=== PATIENT | male | born 1995 | race African-American/Black ===

== ENCOUNTER → 2020-07-18 | Outpatient (REF) | payer MEDICAID, SELFPAY ==
[~2020-07-18] MED LIST: ACET-897 PO; ALLE24TA7 PO; AMOX500C PO; BENZ200C70 PO; LEVO25TA5 PO; LEVO750T13 PO; PRED10TA2 PO; PRED20TA PO; PROAAER10 INH; TESS100C PO
[2020-07-18 12:35] LABS: BASO % 0.8 % (0.0-1.0); EOS # 0.3 10^3/uL (0.0-0.5); EOS % 7.6 % (0.0-3.0); HEMATOCRIT 49.9 % (42.0-52.0); HEMOGLOBIN 16.1 g/dl (13.5-17.5); LYMPH # 1.7 10^3/uL (1.5-5.0); LYMPH % 43.7 % (24.0-44.0); MEAN CORPUSCULAR HEMOGLOBIN 27.7 pg (27.0-33.0); MEAN CORPUSCULAR HGB CONC 32.3 g/dl (32.0-36.5); MEAN CORPUSCULAR VOLUME 85.7 fl (80.0-96.0); MONO # 0.4 10^3/uL (0.0-0.8); MONO % 11.5 % (2.0-8.0); NEUTROPHILS # 1.4 10^3/uL (1.5-8.5); NEUTROPHILS % 36.1 % (36.0-66.0); PLATELET COUNT, AUTOMATED 152 10^3/uL (150-450); RED BLOOD COUNT 5.82 10^6/uL (4.30-6.10); WHITE BLOOD COUNT 3.8 10^3/uL (4.0-10.0)
[2020-07-18 13:00] LABS: ALBUMIN 3.9 GM/DL (3.2-5.2); ALT/SGPT 190 U/L (12-78); BILIRUBIN,TOTAL 0.6 MG/DL (0.2-1.0); BLOOD UREA NITROGEN 8 MG/DL (7-18); CALCIUM LEVEL 9.6 MG/DL (8.5-10.1); CARBON DIOXIDE LEVEL 32 MEQ/L (21-32); CHLORIDE LEVEL 105 MEQ/L (98-107); CHOLESTEROL LEVEL 244 MG/DL (<200); CHOLESTEROL RISK RATIO 4.135 (<5); CREATININE FOR GFR 0.92 MG/DL (0.70-1.30); GLOMERULAR FILTRATION RATE > 60.0 (>60); GLUCOSE, FASTING 93 MG/DL (70-100); HDL CHOLESTEROL 59 MG/DL (>40); LDL CHOLESTEROL 155 MG/DL (<100); NON-HDL-C 185 MG/DL; POTASSIUM SERUM 4.7 MEQ/L (3.5-5.1); SODIUM LEVEL 141 MEQ/L (136-145); TOTAL PROTEIN 7.3 GM/DL (6.4-8.2); TRIGLYCERIDES LEVEL 148 MG/DL (<150)
[2020-07-18 13:41] LABS: HIV 1&2 SCREEN CENTAUR NEGATIVE (NEGATIVE)
== END ==
LOC: M LAB REF 11:13
PROVIDERS: ATTEND Family Medicine Addiction Medicine
DX: Z00.01 Encounter for general adult medical examination with abnormal findings (principal)

== ENCOUNTER 2020-09-11 20:35 | Observation (INO) | payer MEDICAID, SELFPAY ==
[~2020-09-11] VITALS: Ht 182.9 cm; Wt 82.4 kg
[2020-09-11] MEDS ORDERED: AMOX500C PO (20:43)
[2020-09-11] MEDS ORDERED: PRED20TA PO (20:45)
[2020-09-11] MEDS ORDERED: PROAAER10 INH (20:45)
[2020-09-11] MEDS ORDERED: BENZ200C70 PO (20:45)
[2020-09-11] MEDS: DOCUSATE SODIUM 100MG CAPSULE PO SCH (21:00)
[2020-09-11] MEDS ORDERED: COMBIVENT RESPIMAT 100-20MCG INHALER 4GM INH STA (21:32)
[2020-09-11 22:03] LABS: BASO % 0.1 % (0.0-1.0); EOS % 0.3 % (0.0-3.0); HEMATOCRIT 50.1 % (42.0-52.0); HEMOGLOBIN 16.4 g/dl (13.5-17.5); LYMPH # 1.1 10^3/uL (1.5-5.0); LYMPH % 10.9 % (24.0-44.0); MEAN CORPUSCULAR HEMOGLOBIN 27.7 pg (27.0-33.0); MEAN CORPUSCULAR HGB CONC 32.7 g/dl (32.0-36.5); MEAN CORPUSCULAR VOLUME 84.6 fl (80.0-96.0); MONO # 1.1 10^3/uL (0.0-0.8); MONO % 10.8 % (2.0-8.0); NEUTROPHILS # 7.8 10^3/uL (1.5-8.5); NEUTROPHILS % 77.4 % (36.0-66.0); PLATELET COUNT, AUTOMATED 161 10^3/uL (150-450); RED BLOOD COUNT 5.92 10^6/uL (4.30-6.10); WHITE BLOOD COUNT 10.1 10^3/uL (4.0-10.0)
[2020-09-11] MEDS ORDERED: methylPREDNISolone 125MG 2ML VIAL IV ONE (22:10)
[2020-09-11 22:17] LABS: ALBUMIN 4.1 GM/DL (3.2-5.2); ALT/SGPT 230 U/L (12-78); BILIRUBIN,DIRECT 0.2 MG/DL (0.0-0.2); BILIRUBIN,TOTAL 0.8 MG/DL (0.2-1.0); BLOOD UREA NITROGEN 14 MG/DL (7-18); CARBON DIOXIDE LEVEL 33 MEQ/L (21-32); CHLORIDE LEVEL 104 MEQ/L (98-107); CREATININE FOR GFR 0.92 MG/DL (0.70-1.30); GLOMERULAR FILTRATION RATE > 60.0 (>60); GLUCOSE, FASTING 106 MG/DL (70-100); POTASSIUM SERUM 3.9 MEQ/L (3.5-5.1); SODIUM LEVEL 139 MEQ/L (136-145); TOTAL PROTEIN 7.7 GM/DL (6.4-8.2)
[2020-09-11 22:20] LABS: RSV AMPLIFICATION NEGATIVE (NEGATIVE)
--- NOTE | 2020-09-11 22:34 | REPVR ---
PROCEDURE INFORMATION: Exam: XR Chest Exam date and time: 09/11/20 (9:03pm) Age: 25 years old Clinical indication: Cough and dyspnea TECHNIQUE: Imaging protocol: XR of the chest Views: 1 view COMPARISON: No relevant prior studies available FINDINGS: Lungs: Unremarkable. No consolidation. Pleural spaces: Unremarkable. No pleural effusions. No pneumothorax. Heart/Mediastinum: Unremarkable. No cardiomegaly. Bones/joints: Unremarkable. IMPRESSION: No acute findings. Clear lung [place]. Electronically signed by: Jade Campos On 09/11/2020 22:34:09 PM
[2020-09-11] MEDS ORDERED: ISOVUE-370 76% 100ML VIAL As Ordered ONE (22:49)
--- NOTE | 2020-09-11 23:33 | REPVR ---
PROCEDURE INFORMATION: Exam: CTA Chest with Contrast Exam date and time: 09/11/20 (11:12pm) Age: 25 years old Clinical indication: SOB. Possible pulmonary embolism. TECHNIQUE: Imaging protocol: Computed tomographic angiography of the chest with contrast. 3D rendering (Not supervised by radiologist): MIP and/or 3D reconstructed images were created by the technologist. Radiation optimization: All CT scans at this facility use at least one of these dose optimization techniques: automated exposure control; mA and/or kV adjustment per patient size (includes targeted exams where dose is matched to clinical indication); or iterative reconstruction. Contrast material: Iso Contrast volume: 75 ml Contrast route: IV COMPARISON: Portable CXR of 09/11/20 FINDINGS: Pulmonary arteries: Normal. No pulmonary emboli. Aorta: Unremarkable. No aortic aneurysm. No aortic dissection. Lungs: Minimal nonspecific streaky RML changes. Small peripheral opacity anteriorly at the right lung base. No masses. Pleural spaces: Unremarkable. No pneumothorax. No pleural effusions. Heart: Unremarkable. No cardiomegaly. No pericardial effusion. Lymph nodes: Unremarkable. No enlarged lymph nodes. Bones/joints: Unremarkable. No acute fracture. Soft tissues: Unremarkable. IMPRESSION: No filling defects suspicious for pulmonary emboli are seen. There is no CT evidence of aortic dissection nor leakage. No aortic aneurysm is appreciated. Small peripheral opacity anteriorly at the right lung base -- possible atelectasis; possible focal infiltrate. No pleural effusions. Electronically signed by: Jade Campos On 09/11/2020 23:32:55 PM
[2020-09-11] MEDS ORDERED: LevoFLOXacin IV 750 MG in IV 1 EA IV ONE (23:40)
[2020-09-12] MEDS ORDERED: BENZONATATE 100 MG CAP PO PRN (00:40)
[2020-09-12] MEDS ORDERED: guaiFENesin SYRUP 200 MG/10 ML UDC PO PRN (00:40)
[2020-09-12] MEDS ORDERED: ACETAMINOPHEN TAB 650MG DOSE (2X325MG) PO PRN (00:40)
[2020-09-12] MEDS ORDERED: MAALOX 30 ML SUSP *UDC PO PRN (00:40)
[2020-09-12] MEDS ORDERED: TESS100C PO (00:46)
[2020-09-12] MEDS ORDERED: ALLE24TA7 PO (00:46)
[2020-09-12] MEDS ORDERED: PRED20TA PO (00:46)
[2020-09-12] MEDS ORDERED: AMOX500C PO (00:46)
[2020-09-12] MEDS ORDERED: PROAAER10 INH (00:46)
[2020-09-12] MEDS ORDERED: ACET-897 PO (00:46)
--- NOTE | 2020-09-12 01:00 | HPEPDOC ---
[facility] Medical History & Physical Date of Admission Sep 12, 2020 Date of Service: Sep 12, 2020 Primary Care Physician: A Attending Physician: BEREKET ACEVEDO MD MPH History and Physical CHIEF COMPLAINT: Cough, shortness of breath and persistent wheezing HISTORY OF PRESENT ILLNESS: Mr. Domingo is a 25-year-old male who presented to the ER with complaints of weakness, persistent cough and shortness of breath. He was diagnosed on September 07 with acute bronchitis and sent home on a steroid taper with antibiotics. He said he felt better for a couple of days but then began to feel worse. He also says he "lost" his medication because his children are good at hiding things. He did not take the medication for 3 days. Once he found the meds he started taking them again. His "iyhbkn-qi-rhe" at bedside states that he began to have symptoms about a month and half ago. She was worried that he had allergies and got him Al legra-D. The Mariann-D for a couple of days and stopped coughing and so stopped taking the medications. He was also seen at a walk-in clinic about 2 weeks ago and started on an antibiotic. He did not take that medication as the cough stopped. On initial evaluation this evening. He was found to be hypoxic with O2 sats of 88-89% on room air. The patient has no history of asthma or other lung disease. He was placed on 4 L of oxygen with O2 sats improving to 92%. . He was given a dose of Solu-Medrol and started on Levaquin. He was also given Combivent. Chest x-ray showed no acute findings and clear lung mansfield. CTA of the chest was negative for pulmonary emboli but did show a small peripheral o pacity anteriorly at the right lung base. Radiology suggested. This could be atelectasis or possible focal infiltrate. White blood cell count was 10.1. Neutrophils were high at 77.4. He does have some elevation of LFTs with AST at 69 and ALT at 230. He denies any fever, chills, nausea, vomiting or diarrhea. Patient also complains of depression secondary to not working. 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 PAST MEDICAL HISTORY: Patient denies any significant medical history PAST SURGICAL HISTORY: 1. Surgery on a finger SOCIAL HISTORY: Tobacco use: Remote history of tobacco use as a teenager ETOH: Occasional Illicit drug use: Denies Patient lives with: His fiance, children and "[id number]". FAMILY HISTORY: Patient's father is 51 years old and has diabetes and hyperlipidemia. His mother is 47 and he denies her having any significant medical history. REVIEW OF SYSTEMS: Complete 10 point review systems is negative except as noted above PHYSICAL EXAMINATION: Patient is seen in the ER, lying on the stretcher. He has a dry nonproductive cough. He is alert and oriented x 3. HEENT is WNL. Neck is supple. Lungs with inspiratory wheeze bilateral lower lobes. Heart regular rate and rhythm without murmur. Abdomen is soft, non-tender to palpation with bowel sounds positive. Extremities with good ROM and strength equal bilaterally. No lower extremity edema. Pedal pulses are positive. Skin is warm and dry with no obvious rash or lesion. Neuro: grossly intact. Psych: He is pleasant and cooperative ASSESSMENT AND PLAN: 1. Acute respiratory failure with hypoxia secondary to bronchitis which is failed outpatient treatment versus right lower lobe pneumonia. Will continue the patient on steroids and add routine nebulizers. Will also continue Levaquin and encourage good pulmonary toilet with incentive spirometer. Continue oxygen and titrate to keep sats greater than 92%. 2. Bronchitis versus right lower lobe pneumonia. Plan as outlined above. 3. Transaminitis, etiology unclear. Recheck labs in the morning. 4. DVT prophylaxis. Will add Lovenox. CODE STATUS: CODE STATUS was discussed with the patient. He desires to be co nsidered full code. He states his father would act as his surrogate if you are unable to make his decisions. Patient is considered high risk of further deterioration including possible respiratory arrest. He is admitted for close observation and further evaluation and expected to remain at least one midnight. Vital Signs Vital Signs Date Time Temp Pulse Resp B/P (MAP) Pulse Ox O2 Delivery O2 Flow Rate FiO2 09/11/20 23:05 96 95 Nasal Cannula 3.0 09/11/20 21:15 119/59 (79) 09/11/20 20:35 97.6 16 Laboratory Data Labs 24H Laboratory Tests 2 09/11/20 21:38: Immature Granulocyte % (Auto) 0.5, Neutrophils (%) (Auto) 77.4H, Lymphocytes (%) (Auto) 10.9L, Monocytes (%) (Auto) 10.8H, Eosinophils (%) (Auto) 0.3, Basophils (%) (Auto) 0.1, Neutrophils # (Auto) 7.8, Lymphocytes # (Auto) 1.1L, Monocytes # (Auto) 1.1H, Eosinophils # (Auto) 0.0, Basophils # (Auto) 0.0, Nucleated Red Blood Cells % (auto) 0.0, Anion Gap 2L, Glomerular Filtration Rate > 60.0, Lactic Acid Level 1.6, Calcium Level 9.0, Total Bilirubin 0.8, Direct Bilirubin 0.2, Aspartate Amino Transf (AST/SGOT) 69H, Alanine Aminotransferase (ALT/SGPT) 230H, Alkaline Phosphatase 89, Total Protein 7.7, Albumin 4.1, Albumin/Globulin Ratio 1.1, Coronavirus (COVID-19)(PCR) NEGATIVE, Influenza Type A (RT-PCR) NEGATIVE, Influenza Type B (RT-PCR) NEGATIVE, Respiratory Syncytial Virus (PCR) NEGATIVE CBC/BMP Laboratory Tests 09/11/20 21:38 Microbiology Microbiology 09/11/20 Blood Culture, Received Pending Home Medications Scheduled Amoxicillin (Amoxicillin) 500 Mg Capsule, 500 MG PO BID Benzonatate (Benzonatate) 200 Mg Capsule, 200 MG PO TID for cough Prednisone (Prednisone) 20 Mg Tablet, 20 MG PO ASDIRECTED Scheduled PRN Albuterol Sulfate (Proair Hfa) 8.5 Gm Hfa.aer.ad, 2 PUFF INH Q4-6HP PRN for wheezing Allergies Coded Allergies: No Known Allergies (Unverified , 09/11/20) A-FIB/CHADSVASC A-FIB History Current/History of A-Fib/PAF?: No FRANCOISE HOOD Sep 12, 2020 01:00
[2020-09-12] MEDS: IPRATROPIUM 0.5MG/ALBUTEROL 2.5MG INH SOL UD 3ML (DUONEB) NEB SCH ×4 (01:08→20:57)
[2020-09-12 02:56] VITALS: BP 142/89
[2020-09-12] MEDS: methylPREDNISolone 125MG 2ML VIAL IV SCH ×2 (04:24→10:27)
--- NOTE | 2020-09-12 05:45 | ECGEPIP ---
[facility] - ED Test Date: 2020-09-11 Pat Name: ALBAN MEYER Department: Room: - Gender: Male Document Reviewer: MAULIK : 1995 Requested By: LIUDMILA BURNETT Order Number: [id number] Reading MD: Lui Fonseca Measurements Intervals Jerome Rate: 90 P: 48 CO: 134 QRS: 63 QRSD: 82 T: 33 QT: 346 QTc: 423 Interpretive Statements Normal sinus rhythm NO PRIORS FOR COMPARISON Electronically Signed on 09-12-2020 5:44:54 EDT by Lui Fonseca
[2020-09-12 06:32] LABS: HEMATOCRIT 48.6 % (42.0-52.0); HEMOGLOBIN 15.9 g/dl (13.5-17.5); MEAN CORPUSCULAR HEMOGLOBIN 27.5 pg (27.0-33.0); MEAN CORPUSCULAR HGB CONC 32.7 g/dl (32.0-36.5); MEAN CORPUSCULAR VOLUME 84.1 fl (80.0-96.0); PLATELET COUNT, AUTOMATED 160 10^3/uL (150-450); RED BLOOD COUNT 5.78 10^6/uL (4.30-6.10); WHITE BLOOD COUNT 9.1 10^3/uL (4.0-10.0)
[2020-09-12 06:56] LABS: ALBUMIN 3.7 GM/DL (3.2-5.2); ALT/SGPT 204 U/L (12-78); BILIRUBIN,TOTAL 0.5 MG/DL (0.2-1.0); BLOOD UREA NITROGEN 11 MG/DL (7-18); CALCIUM LEVEL 9.3 MG/DL (8.5-10.1); CARBON DIOXIDE LEVEL 26 MEQ/L (21-32); CHLORIDE LEVEL 106 MEQ/L (98-107); GLOMERULAR FILTRATION RATE > 60.0 (>60); GLUCOSE, FASTING 139 MG/DL (70-100); POTASSIUM SERUM 4.2 MEQ/L (3.5-5.1); SODIUM LEVEL 139 MEQ/L (136-145); TOTAL PROTEIN 7.9 GM/DL (6.4-8.2)
[2020-09-12 06:57] LABS: MAGNESIUM LEVEL 2.3 MG/DL (1.8-2.4)
[2020-09-12] MEDS: DOCUSATE SODIUM 100MG CAPSULE PO SCH ×2 (08:26→20:59)
[2020-09-12] MEDS: ENOXAPARIN 40MG/0.4ML SYRINGE (J1650 PER 10MG) SC SCH (08:27)
[2020-09-12 10:00] VITALS: BP 136/86
--- NOTE | 2020-09-12 11:14 | IPNPDOC ---
Text Note Date of Service The patient was seen on 09/12/20. NOTE SUBJECTIVE: -No acute events -Remains on 2L NC OBJECTIVE: Vitals: see below General: NAD HEENT: NCAT, EOMI, anicteric, MMM Pulm: has bibasilar expiratory wheezing with rare crackles Heart: regular rate and rhythm without murmurs Abdomen: normoactive sounds, soft, non-tender to palpation Extremities: No lower extremity edema. Pedal pulses are present. Skin: warm and dry with no obvious rash or lesion. Neuro: Clear speech, CN 3-12 intact, moving all extremities with full strength, grossly intact. Psych: AOx3 ASSESSMENT: 25 yo M with a history of recent bronchitis for which he has repeatedly discontinued medications the moment he begins to feel better so never completed a course of either steroids or antibiotics as prescribed who presents with waxing and waning persistent dry cough and shortness of breath, now with noted hypoxemia and admitted for RLL PNA. 1. Acute respiratory failure with hypoxia secondary to bronchitis vs. RLL PNA w/ outpatient medication non-compliance: -Continue the patient on steroids and nebulizers. -Continue Levaquin -Encourage incentive spirometer. -Continue oxygen and titrate to keep sats greater than 92%. Transaminitis, etiology unclear. -will check liver US DVT prophylaxis: Lovenox. VS,Fishbone, I+O VS, Fishbone, I+O Laboratory Tests 09/11/20 21:38 09/12/20 06:09 Vital Signs Date Time Temp Pulse Resp B/P (MAP) Pulse Ox O2 Delivery O2 Flow Rate FiO2 09/12/20 02:56 98.4 105 18 142/89 (106) 96 Nasal Cannula 2.0 I&O- Last 24 Hours up to 6 AM 09/12/20 05:59 Intake Total 150 ml Output Total 0 ml Balance 150 ml MARIJA CACERES MD Sep 12, 2020 10:09
[2020-09-12] MEDS: guaiFENesin ER 600 MG TAB PO SCH ×2 (12:23→20:59)
[2020-09-12 14:00] VITALS: BP 133/66
[2020-09-12 18:00] VITALS: BP 135/62
[2020-09-12 22:00] VITALS: BP 118/56
[2020-09-12] MEDS: LevoFLOXacin IV 750 MG in IV 1 EA IV SCH (23:13)
[2020-09-13 02:00] VITALS: BP 116/56
[2020-09-13] MEDS: IPRATROPIUM 0.5MG/ALBUTEROL 2.5MG INH SOL UD 3ML (DUONEB) NEB SCH ×4 (02:20→20:52)
[2020-09-13 06:00] VITALS: BP 102/50
[2020-09-13] MEDS: DOCUSATE SODIUM 100MG CAPSULE PO SCH ×2 (09:33→20:01)
[2020-09-13] MEDS: predniSONE 20 MG TAB PO SCH (09:33)
[2020-09-13] MEDS: guaiFENesin ER 600 MG TAB PO SCH ×2 (09:33→20:01)
[2020-09-13] MEDS: ENOXAPARIN 40MG/0.4ML SYRINGE (J1650 PER 10MG) SC SCH (09:34)
[2020-09-13 10:00] VITALS: BP 121/66
[2020-09-13 14:00] VITALS: BP 118/65
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
--- NOTE | 2020-09-13 16:06 | REP ---
INDICATION: transaminitis COMPARISON: None. TECHNIQUE: Real time stern scale ultrasound examination using curved array transducer. FINDINGS: Liver is normal in contour, size, and echogenicity without focal hepatic lesions identified. Pancreas is incompletely evaluated due to interposed bowel gas. The gallbladder is normal and without gallstones, wall thickening, or pericholecystic fluid. No biliary ductal dilatation is appreciated and the common bile duct measures 2.6 mm diameter. Right kidney is normal in reniform shape without hydronephrosis and measures 10.6 x 5.3 x 5.8 cm. No ascites in the visualized right upper quadrant. IMPRESSION: Normal limited right upper quadrant ultrasound <Electronically signed by Daniel Peres > 09/13/20 [id number]
[2020-09-13 18:00] VITALS: BP 113/59
[2020-09-13 22:00] VITALS: BP 128/61
[2020-09-13] MEDS: LevoFLOXacin IV 750 MG in IV 1 EA IV SCH (23:07)
[2020-09-14 02:00] VITALS: BP 130/67
[2020-09-14] MEDS: IPRATROPIUM 0.5MG/ALBUTEROL 2.5MG INH SOL UD 3ML (DUONEB) NEB SCH ×4 (02:24→20:00)
[2020-09-14 06:00] VITALS: BP 124/58
[2020-09-14 08:58] LABS: BASO % 0.1 % (0.0-1.0); EOS # 0.1 10^3/uL (0.0-0.5); EOS % 0.6 % (0.0-3.0); HEMATOCRIT 48.8 % (42.0-52.0); HEMOGLOBIN 15.5 g/dl (13.5-17.5); LYMPH # 2.5 10^3/uL (1.5-5.0); LYMPH % 27.7 % (24.0-44.0); MEAN CORPUSCULAR HEMOGLOBIN 27.4 pg (27.0-33.0); MEAN CORPUSCULAR HGB CONC 31.8 g/dl (32.0-36.5); MEAN CORPUSCULAR VOLUME 86.4 fl (80.0-96.0); MONO # 0.7 10^3/uL (0.0-0.8); MONO % 7.8 % (2.0-8.0); NEUTROPHILS # 5.6 10^3/uL (1.5-8.5); NEUTROPHILS % 62.8 % (36.0-66.0); PLATELET COUNT, AUTOMATED 122 10^3/uL (150-450); RED BLOOD COUNT 5.65 10^6/uL (4.30-6.10); WHITE BLOOD COUNT 8.9 10^3/uL (4.0-10.0)
[2020-09-14] MEDS: ENOXAPARIN 40MG/0.4ML SYRINGE (J1650 PER 10MG) SC SCH (09:35)
[2020-09-14] MEDS: DOCUSATE SODIUM 100MG CAPSULE PO SCH ×2 (09:36→20:05)
[2020-09-14] MEDS: predniSONE 20 MG TAB PO SCH (09:36)
[2020-09-14] MEDS: guaiFENesin ER 600 MG TAB PO SCH ×2 (09:36→20:05)
[2020-09-14 09:39] LABS: ALBUMIN 3.2 GM/DL (3.2-5.2); ALT/SGPT 247 U/L (12-78); BILIRUBIN,TOTAL 0.4 MG/DL (0.2-1.0); BLOOD UREA NITROGEN 11 MG/DL (7-18); CARBON DIOXIDE LEVEL 31 MEQ/L (21-32); CHLORIDE LEVEL 105 MEQ/L (98-107); CREATININE FOR GFR 0.93 MG/DL (0.70-1.30); GLOMERULAR FILTRATION RATE > 60.0 (>60); GLUCOSE, FASTING 93 MG/DL (70-100); MAGNESIUM LEVEL 2.1 MG/DL (1.8-2.4); POTASSIUM SERUM 3.7 MEQ/L (3.5-5.1); SODIUM LEVEL 141 MEQ/L (136-145); TOTAL PROTEIN 6.8 GM/DL (6.4-8.2)
[2020-09-14 10:00] VITALS: BP 135/78
[2020-09-14 10:33] LABS: BASO % 0.1 % (0.0-1.0); EOS # 0.1 10^3/uL (0.0-0.5); EOS % 0.6 % (0.0-3.0); HEMATOCRIT 46.8 % (42.0-52.0); HEMOGLOBIN 15.1 g/dl (13.5-17.5); LYMPH # 2.6 10^3/uL (1.5-5.0); LYMPH % 29.1 % (24.0-44.0); MEAN CORPUSCULAR HEMOGLOBIN 27.6 pg (27.0-33.0); MEAN CORPUSCULAR HGB CONC 32.3 g/dl (32.0-36.5); MEAN CORPUSCULAR VOLUME 85.6 fl (80.0-96.0); MONO # 0.5 10^3/uL (0.0-0.8); MONO % 5.4 % (2.0-8.0); NEUTROPHILS # 5.8 10^3/uL (1.5-8.5); NEUTROPHILS % 63.8 % (36.0-66.0); PLATELET COUNT, AUTOMATED 142 10^3/uL (150-450); RED BLOOD COUNT 5.47 10^6/uL (4.30-6.10)
--- NOTE | 2020-09-14 10:39 | REP ---
INDICATION: r/o DVT COMPARISON: None. TECHNIQUE: Cortez scale and color Doppler evaluation using linear high frequency transducer. FINDINGS: Ultrasound examination of the right and left lower extremity deep venous structures from the common femoral vein through the calf/ankle to include the peroneal, and tibial veins demonstrates normal compressibility flow and wave patterns in response to respiration and augmentation. There is no evidence for deep venous thrombosis. IMPRESSION: No evidence for deep venous thrombosis. <Electronically signed by Daniel Peres > 09/14/20 [id number]
[2020-09-14] MEDS ORDERED: PRED10TA2 PO (10:47)
[2020-09-14] MEDS ORDERED: PROAAER10 INH (10:47)
[2020-09-14] MEDS ORDERED: TESS100C PO (10:47)
[2020-09-14] MEDS ORDERED: ACET-897 PO (10:47)
[2020-09-14] MEDS ORDERED: LEVO750T13 PO (10:48)
--- NOTE | 2020-09-14 11:14 | DS.PDOC ---
Discharge Summary General Date of Admission Sep 11, 2020 at 20:36 Date of Discharge 09/16/20 Discharge Summary PROCEDURES PERFORMED DURING STAY: [None]. COMPLICATIONS/CHIEF COMPLAINT: Hypoxia Rll Pneumonia Wheezing. HISTORY OF PRESENT ILLNESS: Mr. Domingo is a 25-year-old male who presented to the ER with complaints of weakness, persistent cough and shortness of breath. He was diagnosed on September 07 with acute bronchitis and sent home on a steroid taper with antibiotics. He said he felt better for a couple of days but then began to feel worse. He also says he "lost" his medication because his children are good at hiding things. He did not take the medication for 3 days. Once he found the meds he started taking them again. His "vjwppm-qw-rjj" at bedside states that he began to have symptoms about a month and half ago. She was worried that he had allergies and got him Mariann-D. The Mariann-D for a couple of days and stopped coughing and so stopped taking the medications. He was also seen at a walk-in clinic about 2 weeks ago and started on an antibiotic. He did not take that medication as the cough stopped. On initial evaluation this evening. He was found to be hypoxic with O2 sats of 88-89% on room air. The patient has no history of asthma or other lung disease. He was placed on 4 L of oxygen with O2 sats improving to 92%. . He was given a dose of Solu-Medrol and started on Levaquin. He was also given Combivent. Chest x-ray showed no acute findings and clear lung [place]. CTA of the chest was negative for pulmonary emboli but did show a small peripheral opacity anteriorly at the right lung base. Radiology suggested. This could be atelectasis or possible focal infiltrate. White blood cell count was 10.1. Neutrophils were high at 77.4. He does have some elevation of LFTs with AST at 69 and ALT at 230. He denies any fever, chills, nausea, vomiting or diarrhea. Patient also complains of depression secondary to not working. 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 HOSPITAL COURSE: Acute respiratory failure with hypoxia secondary to bronchitis vs. RLL PNA w/ outpatient medication non-compliance: -patient has no leukocytosis, no fever -cough is improved. -CTA chest showing no PE. Likely pna in R lung base. -Continue the patient on steroids and nebulizers. -has received 3 days levaquin, continue additional 5 days levaquin as outpatient -continue with prednisone taper on DC -Encourage incentive spirometer -check sputum culture, strep pneumo ag, legionella ag. Follow up outpatient. -Continue oxygen and titrate to keep sats greater than 92%. Transaminitis, etiology unclear. - Liver US showed no acute findings -Check hepatitis panel, pending results to be followed up outpatient -AST/ALT 69/230 and has remained stable Thrombocytopenia - noted to have PLT count 122 from baseline of 160 - repeat shows PLT count of 142 - appears to be within range of baseline - to repeat CBC as outpatient - no signs of bleeding DISCHARGE MEDICATIONS: Please see below. ALLERGIES: Please see below. PHYSICAL EXAMINATION ON DISCHARGE: VITAL SIGNS: please see below General: NAD, comfortable HEENT: PERRLA, EOMI, sclerae clear Neck: supple, normal ROM, no JVD Respiratory: lungs CTAB, no wheeze, no rales, no crackles CVS: RRR, normal S1, S2, no murmurs Abdo: soft, no masses, no hepatosplenomegaly, BS+, no rebound tenderness Extremities: no edema, pulses 2+ MSK: no joint deformities, normal ROM Neuro: no focal neuro deficits, moving all 4 extremities, CN2-12 intact. Strength 5/5 in all 4 extremities. No nystagmus. Psych: calm, cooperative, AAO x 3 LABORATORY DATA: Please see below. IMAGING: Bilateral venous duplex (09/14/20): IMPRESSION: No evidence for deep venous thrombosis. Liver US (09/13/20): FINDINGS: Liver is normal in contour, size, and echogenicity without focal hepatic lesions identified. Pancreas is incompletely evaluated due to interposed bowel gas. The gallbladder is normal and without gallstones, wall thickening, or pericholecystic fluid. No biliary ductal dilatation is appreciated and the common bile duct measures 2.6 mm diameter. Right kidney is normal in reniform shape without hydronephrosis and measures 10.6 x 5.3 x 5.8 cm. No ascites in the visualized right upper quadrant. IMPRESSION: Normal limited right upper quadrant ultrasound CTA Chest (09/11/20): IMPRESSION: No filling defects suspicious for pulmonary emboli are seen. There is no CT evidence of aortic dissection nor leakage. No aortic aneurysm is appreciated. Small peripheral opacity anteriorly at the right lung base -- possible atelectasis; possible focal infiltrate. No pleural effusions. CXR (09/11/20): IMPRESSION: No acute findings. Clear lung mansfield. PROGNOSIS: Good ACTIVITY: [As tolerated]. DIET: As tolerated DISCHARGE PLAN: DC home. Complete 5 additional days of Levaquin along with a prednisone taper. Please request a referral for a sleep study from your primary care doctor. Patient will also require a repeat CBC to evaluate for thrombocytopenia. Platelets have been trending between 140s and 160s since July/2020. No signs of bleeding. DISPOSITION: Home DISCHARGE INSTRUCTIONS: . Please follow-up with your primary care doctor within 3-5 days . Please taking medications as prescribed. Levaquin 750 mg per day x 5 days, along with a steroid taper. . If you develop bleeding, chest pain, shortness of breath, seizures, nausea, fevers, or otherwise worsening of your symptoms, please call 911 or return to the nearest emergency room ITEMS TO FOLLOWUP ON ON OUTPATIENT: 1. Final hepatitis panel, performed for transaminitis 2. Final sputum culture and blood culture 3. Please repeat CBC to evaluate platelet count. Has been consistent between 140 and 160 since 07/2020 4. Please provide referral for sleep study, for suspected ROGELIO. DISCHARGE CONDITION: [Stable]. TIME SPENT ON DISCHARGE: 35 minutes Vital Signs/I&Os Vital Signs Date Time Temp Pulse Resp B/P (MAP) Pulse Ox O2 Delivery O2 Flow Rate FiO2 09/14/20 10:00 97.2 129 18 135/78 (97) 95 Room Air 09/14/20 06:00 1.0 I&O- Last 24 Hours up to 6 AM 09/14/20 06:00 Intake Total 1290 ml Balance 1290 ml Laboratory Data Labs 24H Laboratory Tests 2 09/13/20 14:54: 09/13/20 14:57: 09/14/20 08:36: Procalcitonin <0.05 09/14/20 08:39: Immature Granulocyte % (Auto) 1.0, Neutrophils (%) (Auto) 62.8, Lymphocytes (%) (Auto) 27.7, Monocytes (%) (Auto) 7.8, Eosinophils (%) (Auto) 0.6, Basophils (%) (Auto) 0.1, Neutrophils # (Auto) 5.6, Lymphocytes # (Auto) 2.5, Monocytes # (Auto) 0.7, Eosinophils # (Auto) 0.1, Basophils # (Auto) 0.0, Nucleated Red Blood Cells % (auto) 0.0, Anion Gap 5L, Glomerular Filtration Rate > 60.0, Calcium Level 9.0, Magnesium Level 2.1, Total Bilirubin 0.4, Aspartate Amino Transf (AST/SGOT) 68H, Alanine Aminotransferase (ALT/SGPT) 247H, Alkaline Phosphatase 78, C-Reactive Protein, Quantitative 0.30, Total Protein 6.8, Albumin 3.2, Albumin/Globulin Ratio 0.9 09/14/20 10:10: Immature Granulocyte % (Auto) 1.0, Neutrophils (%) (Auto) 63.8, Lymphocytes (%) (Auto) 29.1, Monocytes (%) (Auto) 5.4, Eosinophils (%) (Auto) 0.6, Basophils (%) (Auto) 0.1, Neutrophils # (Auto) 5.8, Lymphocytes # (Auto) 2.6, Monocytes # (Auto) 0.5, Eosinophils # (Auto) 0.1, Basophils # (Auto) 0.0, Nucleated Red Blood Cells % (auto) 0.0 CBC/BMP Laboratory Tests 09/14/20 08:39 09/14/20 10:10 Microbiology Microbiology 09/13/20 Gram Stain - Final, Resulted 09/13/20 Sputum Culture, Resulted Pending 09/11/20 Blood Culture - Preliminary, Resulted No Growth after 48 hours. All Specime... Discharge Medications Scheduled Benzonatate (Tessalon Perle) 100 Mg Capsule, 100 MG PO TID Levofloxacin (Levofloxacin) 750 Mg Tablet, 1 TAB PO DAILY Levothyroxine Sodium (Levothyroxine Sodium) 25 Mcg Tablet, 25 MCG PO DAILY@06 Prednisone (Prednisone) 10 Mg Tablet, 10 MG PO TAPER Take 4 tabs daily x 3 days, then 3 tabs daily x 3 days, then 2 tabs daily x 3 days, then 1 tab daily x 3 days and stop Scheduled PRN Acetaminophen (Tylenol Extra Strength) 500 Mg Tablet, 1,000 MG PO Q6H PRN for FEVER Albuterol Sulfate (Proair Hfa) 8.5 Gm Hfa.aer.ad, 2 PUFF INH Q4H PRN for SHORTNESS OF BREATH Allergies Coded Allergies: No Known Allergies (Unverified , 09/11/20) KANIKA BERMUDEZ MD Sep 14, 2020 11:14
--- NOTE | 2020-09-14 12:04 | ECGEPIP ---
[facility] Test Date: 2020-09-14 Pat Name: ALBAN MEYER Department: Room: [place] [address] Gender: Male Hop Separator: stephan : 1995 Requested By: KANIKA BERMUDEZ Order Number: [id number] Reading MD: Jeremy Carlton Measurements Intervals [place] Rate: 73 P: 25 WV: 118 QRS: 43 QRSD: 86 T: -11 QT: 366 QTc: 403 Interpretive Statements Normal sinus rhythm with sinus arrhythmia Decreased heart rate compared with 09/11/2020. Electronically Signed on 09-14-2020 12:04:29 EDT by Jeremy Carlton
[2020-09-14] MEDS ORDERED: ISOVUE-370 76% 100ML VIAL As Ordered ONE (13:29)
[2020-09-14 14:00] VITALS: BP 134/78
--- NOTE | 2020-09-14 14:00 | REP ---
INDICATION: hypoxia and tachycardia. R/o PE. COMPARISON: 09/11/2020 TECHNIQUE: Axial contrast enhanced images from the thoracic inlet to the upper abdomen using pulmonary embolus technique with multiplanar re-formations. 75 ml Isovue 370 intravenous contrast material administered without complication. This CT examination was performed using the following dose reduction techniques: Automated exposure control, adjustment of mA and/or kv according to the patient's size, and use of iterative reconstruction technique. FINDINGS: Satisfactory enhancement of the pulmonary vasculature is achieved and no filling defects are identified to suggest pulmonary embolus. Further evaluation of the mediastinum demonstrates normal thoracic aorta, heart and pericardium. Small to moderate but increased areas atelectasis in the right middle lobe and new areas of atelectasis in the lingula and bilateral lower lobes are now identified. No significant consolidation. No effusion. No pneumothorax. Tracheobronchial tree is patent. No adenopathy. IMPRESSION: No evidence for pulmonary embolus. Areas of scattered right middle lobe, lingular and lower lobe atelectasis increased from prior examination.. <Electronically signed by Daniel Peres > 09/14/20 [id number]
[2020-09-14 18:00] VITALS: BP 115/60
--- NOTE | 2020-09-14 18:36 | IPNPDOC ---
Date Seen The patient was seen on 09/14/20. Progress Note SUBJECTIVE: Patient was seen at bedside this morning. Presently on 1 L O2. Reports mild intermittent cough. Denies fevers, chills, chest pain, palpitations, nausea, vomiting, diarrhea. OBJECTIVE PHYSICAL EXAMINATION: VITAL SIGNS: please see below General: NAD, comfortable HEENT: PERRLA, EOMI, sclerae clear Neck: supple, normal ROM, no JVD Respiratory: lungs CTAB, no wheeze, no rales, no crackles CVS: RRR, normal S1, S2, no murmurs Abdo: soft, no masses, no hepatosplenomegaly, BS+, no rebound tenderness Extremities: no edema, pulses 2+ MSK: no joint deformities, normal ROM Neuro: no focal neuro deficits, moving all 4 extremities, CN2-12 intact. Strength 5/5 in all 4 extremities. No nystagmus. Psych: calm, cooperative, AAO x 3 IMAGING: CTA chest (09/14/20): IMPRESSION: No evidence for pulmonary embolus. Areas of scattered right middle lobe, lingular and lower lobe atelectasis increased from prior examination. DVT prophylaxis ordered?: Lovenox ASSESSMENT AND PLAN: 35-year-old male with history of bronchitis that was recently diagnosed, did not complete therapy. States that his son hit his antibiotics. Continues to complain of waxing and waning dry cough and dyspnea. Presented with hypoxemia secondary to right lower lobe pneumonia. Acute respiratory failure with hypoxia secondary to bronchitis vs. RLL PNA w/ outpatient medication non-compliance: -patient has no leukocytosis, no fever -cough is improved. -CTA chest showing no PE on 09/11/20. Likely pna in R lung base. -Continue the patient on steroids and nebulizers. -has received 3 days levaquin, continue -continue with prednisone taper on DC -Encourage incentive spirometer -check sputum culture, strep pneumo ag, legionella ag. - patient continues to be hypoxic and tachycardic. D/w Dr. Clarke. Recommended repeat CTA PE. Negative for PE. Shows atelectasis of R middle lobe, lingular and lower lobe -encourage ambulation, chest PT. -Continue oxygen and titrate to keep sats greater than 92%. Transaminitis, etiology unclear. - Liver US showed no acute findings -Check hepatitis panel, pending results to be followed up outpatient -AST/ALT 69/230 and has remained stable Thrombocytopenia - noted to have PLT count 122 from baseline of 160 - repeat shows PLT count of 142 - appears to be within range of baseline - no signs of bleeding DVT ppx: Lovenox Dispo: pending clinical improvement. VS, I&O, 24H, Fishbone Vital Signs/I&O Vital Signs Date Time Temp Pulse Resp B/P (MAP) Pulse Ox O2 Delivery O2 Flow Rate FiO2 09/14/20 14:00 98.3 117 18 134/78 (96) 94 Nasal Cannula 2.0 I&O- Last 24 Hours up to 6 AM 09/14/20 06:00 Intake Total 1290 ml Balance 1290 ml Laboratory Data 24H LABS Laboratory Tests 2 09/14/20 08:36: Procalcitonin <0.05 09/14/20 08:39: Immature Granulocyte % (Auto) 1.0, Neutrophils (%) (Auto) 62.8, Lymphocytes (%) (Auto) 27.7, Monocytes (%) (Auto) 7.8, Eosinophils (%) (Auto) 0.6, Basophils (%) (Auto) 0.1, Neutrophils # (Auto) 5.6, Lymphocytes # (Auto) 2.5, Monocytes # (Auto) 0.7, Eosinophils # (Auto) 0.1, Basophils # (Auto) 0.0, Nucleated Red Blood Cells % (auto) 0.0, Anion Gap 5L, Glomerular Filtration Rate > 60.0, Calcium Level 9.0, Magnesium Level 2.1, Total Bilirubin 0.4, Aspartate Amino Transf (AST/SGOT) 68H, Alanine Aminotransferase (ALT/SGPT) 247H, Alkaline Phosphatase 78, C-Reactive Protein, Quantitative 0.30, Total Protein 6.8, Albumin 3.2, Albumin/Globulin Ratio 0.9, Thyroid Stimulating Hormone (TSH) 4.790H, Free Thyroxine 0.70L 09/14/20 10:10: Immature Granulocyte % (Auto) 1.0, Neutrophils (%) (Auto) 63.8, Lymphocytes (%) (Auto) 29.1, Monocytes (%) (Auto) 5.4, Eosinophils (%) (Auto) 0.6, Basophils (%) (Auto) 0.1, Neutrophils # (Auto) 5.8, Lymphocytes # (Auto) 2.6, Monocytes # (Auto) 0.5, Eosinophils # (Auto) 0.1, Basophils # (Auto) 0.0, Nucleated Red Blood Cells % (auto) 0.0, Platelet Count, EDTA Free 09/14/20 14:15: Coronavirus (COVID-19)(PCR) NEGATIVE CBC/BMP Laboratory Tests 09/14/20 08:39 09/14/20 10:10 Microbiology Microbiology 09/13/20 Gram Stain - Final, Resulted 09/13/20 Sputum Culture, Resulted Pending 09/11/20 Blood Culture - Preliminary, Resulted No Growth after 48 hours. All Specime... KANIKA BERMUDEZ MD Sep 14, 2020 18:36
[2020-09-14 22:00] VITALS: BP 122/57
[2020-09-14] MEDS: LevoFLOXacin IV 750 MG in IV 1 EA IV SCH (23:03)
[2020-09-15] VITALS (7 sets, daily range): BP systolic 105–143; BP diastolic 59–92
[2020-09-15] MEDS: IPRATROPIUM 0.5MG/ALBUTEROL 2.5MG INH SOL UD 3ML (DUONEB) NEB SCH ×4 (01:06→20:11)
[2020-09-15] MEDS: LEVOTHYROXINE 25MCG TABLET (0.025MG) PO SCH (05:43)
[2020-09-15] MEDS ORDERED: PANTOPRAZOLE 40MG TAB (PROTONIX) PO ONE (05:45)
[2020-09-15] MEDS ORDERED: MORPHINE 2 MG/ML 1ML VIAL (J2270) IV ONE (05:50)
[2020-09-15 06:06] LABS: HEMATOCRIT 47.7 % (42.0-52.0); HEMOGLOBIN 15.4 g/dl (13.5-17.5); MEAN CORPUSCULAR HEMOGLOBIN 27.5 pg (27.0-33.0); MEAN CORPUSCULAR HGB CONC 32.3 g/dl (32.0-36.5); MEAN CORPUSCULAR VOLUME 85.3 fl (80.0-96.0); PLATELET COUNT, AUTOMATED 152 10^3/uL (150-450); RED BLOOD COUNT 5.59 10^6/uL (4.30-6.10); WHITE BLOOD COUNT 12.4 10^3/uL (4.0-10.0)
[2020-09-15 06:25] LABS: TROPONIN I < 0.02 NG/ML (< 0.10)
--- NOTE | 2020-09-15 07:18 | REPVR ---
PROCEDURE INFORMATION: Exam: XR Chest Exam date and time: 09/15/2020 6:27 AM Age: 25 years old Clinical indication: Chest wall pain; Additional info: Chest pain TECHNIQUE: Imaging protocol: XR of the chest. Views: 2 views. COMPARISON: CR PORTABLE CHEST X-RAY 09/11/2020 9:03 PM FINDINGS: Lungs: Trace basilar airspace disease, best visualized on the lateral projection. Pleural spaces: Trace pleural effusion. Heart/Mediastinum: Normal configuration of the heart. Bones/joints: Unremarkable. IMPRESSION: Trace basilar airspace disease and pleural effusion. Electronically signed by: Celestino Javier On 09/15/2020 07:18:01 AM
[2020-09-15] MEDS: ENOXAPARIN 40MG/0.4ML SYRINGE (J1650 PER 10MG) SC SCH ×2 (08:56→08:57)
[2020-09-15] MEDS: DOCUSATE SODIUM 100MG CAPSULE PO SCH ×2 (08:56→20:19)
[2020-09-15] MEDS: predniSONE 20 MG TAB PO SCH (08:56)
[2020-09-15] MEDS: guaiFENesin ER 600 MG TAB PO SCH ×2 (08:56→20:19)
[2020-09-15 08:59] LABS: AMYLASE 140 U/L (25-115); LIPASE 30 U/L (73-393)
[2020-09-15 12:51] LABS: C REACTIVE PROTEIN QUANTITATIV < 0.30 MG/DL (0.00-0.30); TROPONIN I < 0.02 NG/ML (< 0.10)
[2020-09-15 12:55] LABS: HEPATITIS A ANTIBODY IGM NEGATIVE (NEGATIVE); HEPATITIS B CORE ANTIBODY IGM NEGATIVE (NEGATIVE); HEPATITIS B SURFACE ANTIGEN NEGATIVE (NEGATIVE)
--- NOTE | 2020-09-15 17:23 | IPNPDOC ---
Date Seen The patient was seen on 09/15/20. Progress Note SUBJECTIVE: Patient was seen at bedside this morning. Presently on 1 L O2. Reports mild intermittent cough. Denies fevers, chills, chest pain, palpitations, nausea, vomiting, diarrhea. Had 8/10 pain in the L thorax this morning, with radiation to the back. Had negative troponin. CXR showed a poss ible pleural effusion, but imaging was reviewed by Dr. Rosales, no effusion see. OBJECTIVE PHYSICAL EXAMINATION: VITAL SIGNS: please see below General: NAD, comfortable HEENT: PERRLA, EOMI, sclerae clear Neck: supple, normal ROM, no JVD Respiratory: lungs CTAB, no wheeze, no rales, no crackles CVS: RRR, normal S1, S2, no murmurs Abdo: soft, no masses, no hepatosplenomegaly, BS+, no rebound tenderness Extremities: no edema, pulses 2+ MSK: no joint deformities, normal ROM Neuro: no focal neuro deficits, moving all 4 extremities, CN2-12 intact. Strength 5/5 in all 4 extremities. No nystagmus. Psych: calm, cooperative, AAO x 3 IMAGING: CTA chest (09/14/20): IMPRESSION: No evidence for pulmonary embolus. Areas of scattered right middle lobe, lingular and lower lobe atelectasis increased from prior examination. DVT prophylaxis ordered?: Lovenox ASSESSMENT AND PLAN: 35-year-old male with history of bronchitis that was recently diagnosed, did not complete therapy. States that his son hit his antibiotics. Continues to complain of waxing and waning dry cough and dyspnea. Presented with hypoxemia secondary to right lower lobe pneumonia. Acute respiratory failure with hypoxia secondary to bronchitis vs. RLL PNA w/ outpatient medication non-compliance: -patient has no leukocytosis, no fever -cough is improved. -CTA chest showing no PE on 09/11/20. Likely pna in R lung base. -Continue the patient on steroids and nebulizers. -has received 3 days levaquin, continue -continue with prednisone taper on DC -Encourage incentive spirometer -check sputum culture, strep pneumo ag, legionella ag. - patient continues to be hypoxic and tachycardic. D/w Dr. Clarke. Recommended repeat CTA PE. Negative for PE. Shows atelectasis of R middle lobe, lingular and lower lobe -encourage ambulation, chest PT. -Continue oxygen and titrate to keep sats greater than 92%. Transaminitis, etiology unclear. - Liver US showed no acute findings -Check hepatitis panel, pending results to be followed up outpatient -AST/ALT 69/230 and has remained stable Thrombocytopenia - resolved on repeat CBC on 09/15/20 - noted to have PLT count 122 from baseline of 160 - repeat shows PLT count of 142 - appears to be within range of baseline - no signs of bleeding L chest wall pain - trop neg x 2, ekg no acute changes - CXR no consolitation or effusion - symmetrical BPs on both limbs - suspect chostochondritis DVT ppx: Lovenox Dispo: pending clinical improvement. VS, I&O, 24H, Fishbone Vital Signs/I&O Vital Signs Date Time Temp Pulse Resp B/P (MAP) Pulse Ox O2 Delivery O2 Flow Rate FiO2 09/15/20 14:00 98.3 109 16 121/71 (88) 92 Nasal Cannula 1.0 I&O- Last 24 Hours up to 6 AM 09/15/20 06:00 Intake Total 1860 ml Balance 1860 ml Laboratory Data 24H LABS Laboratory Tests 2 09/15/20 05:50: Nucleated Red Blood Cells % (auto) 0.0, Troponin I < 0.02, Amylase Level 140H, Lipase 30L 09/15/20 09:10: Methicillin-Resist S.aureus DNA PCR NOT DETECTED 09/15/20 11:29: Troponin I < 0.02, C-Reactive Protein, Quantitative < 0.30 09/15/20 11:30: Erythrocyte Sedimentation Rate 3 CBC/BMP Laboratory Tests 09/15/20 05:50 Microbiology Microbiology 09/13/20 Gram Stain - Final, Complete 09/13/20 Sputum Culture - Final, Complete 09/11/20 Blood Culture - Preliminary, Resulted No Growth after 72 hours. All specime... KANIKA BERMUDEZ MD Sep 15, 2020 17:23
[2020-09-15] MEDS ORDERED: LevoFLOXacin 750 MG TABLET PO SCH (21:00)
[2020-09-16 02:00] VITALS: BP 121/78
[2020-09-16] MEDS: IPRATROPIUM 0.5MG/ALBUTEROL 2.5MG INH SOL UD 3ML (DUONEB) NEB SCH ×2 (02:00→07:11)
[2020-09-16] MEDS: LEVOTHYROXINE 25MCG TABLET (0.025MG) PO SCH (05:43)
[2020-09-16 06:00] VITALS: BP 126/82
--- NOTE | 2020-09-16 07:17 | ECGEPIP ---
[facility] Test Date: 2020-09-15 Pat Name: ALBAN MEYER Department: Room: [place] [address] Gender: Male Commercial Attache: Kishor BRUNO : 1995 Requested By: Flora Sage [facility] Order Number: [id number] Reading MD: Jeremy Leblanc Measurements Intervals [place] Rate: 79 P: 22 AK: 128 QRS: 38 QRSD: 92 T: 11 QT: 388 QTc: 444 Interpretive Statements Normal sinus rhythm Similar to tracing done 09-14-20 Electronically Signed on 09-16-2020 7:16:49 EDT by Jeremy Leblanc
[2020-09-16] MEDS: ENOXAPARIN 40MG/0.4ML SYRINGE (J1650 PER 10MG) SC SCH (08:12)
[2020-09-16] MEDS: predniSONE 20 MG TAB PO SCH (08:12)
[2020-09-16] MEDS: guaiFENesin ER 600 MG TAB PO SCH (08:12)
[2020-09-16] MEDS: DOCUSATE SODIUM 100MG CAPSULE PO SCH (08:12)
[2020-09-16 09:18] LABS: BASO % 0.2 % (0.0-1.0); EOS % 0.3 % (0.0-3.0); HEMATOCRIT 49.8 % (42.0-52.0); HEMOGLOBIN 16.1 g/dl (13.5-17.5); LYMPH # 3.1 10^3/uL (1.5-5.0); LYMPH % 33.2 % (24.0-44.0); MEAN CORPUSCULAR HEMOGLOBIN 27.5 pg (27.0-33.0); MEAN CORPUSCULAR HGB CONC 32.3 g/dl (32.0-36.5); MEAN CORPUSCULAR VOLUME 85.1 fl (80.0-96.0); MONO # 0.6 10^3/uL (0.0-0.8); MONO % 6.7 % (2.0-8.0); NEUTROPHILS # 5.4 10^3/uL (1.5-8.5); NEUTROPHILS % 58.6 % (36.0-66.0); PLATELET COUNT, AUTOMATED 143 10^3/uL (150-450); RED BLOOD COUNT 5.85 10^6/uL (4.30-6.10); WHITE BLOOD COUNT 9.3 10^3/uL (4.0-10.0)
[2020-09-16 09:52] LABS: ALBUMIN 3.3 GM/DL (3.2-5.2); ALT/SGPT 315 U/L (12-78); BILIRUBIN,TOTAL 0.5 MG/DL (0.2-1.0); BLOOD UREA NITROGEN 12 MG/DL (7-18); CALCIUM LEVEL 9.3 MG/DL (8.5-10.1); CARBON DIOXIDE LEVEL 29 MEQ/L (21-32); CHLORIDE LEVEL 104 MEQ/L (98-107); CREATININE FOR GFR 0.86 MG/DL (0.70-1.30); GLOMERULAR FILTRATION RATE > 60.0 (>60); GLUCOSE, FASTING 91 MG/DL (70-100); POTASSIUM SERUM 3.9 MEQ/L (3.5-5.1); SODIUM LEVEL 139 MEQ/L (136-145); TOTAL PROTEIN 6.9 GM/DL (6.4-8.2)
[2020-09-16] MEDS ORDERED: IPRATROPIUM 0.5MG/ALBUTEROL 2.5MG INH SOL UD 3ML (DUONEB) NEB ONE (09:55)
[2020-09-16] MEDS ORDERED: LEVO750T13 PO (11:35)
[2020-09-16] MEDS ORDERED: LEVO25TA5 PO (11:35)
--- NOTE | 2020-09-16 11:55 | IPNPDOC ---
Date Seen The patient was seen on 09/16/20. Progress Note SUBJECTIVE: Patient seen and examined at bedside. Doing well. No hypoxia overnight nocturnal oximetry showing saturations at 90% on room air. Patient has no more chest pain, no shortness of breath, palpitations. No cough. OBJECTIVE PHYSICAL EXAMINATION: VITAL SIGNS: please see below General: NAD, comfortable HEENT: PERRLA, EOMI, sclerae clear Neck: supple, normal ROM, no JVD Respiratory: lungs CTAB, no wheeze, no rales, no crackles CVS: RRR, normal S1, S2, no murmurs Abdo: soft, no masses, no hepatosplenomegaly, BS+, no rebound tenderness Extremities: no edema, pulses 2+ MSK: no joint deformities, normal ROM Neuro: no focal neuro deficits, moving all 4 extremities, CN2-12 intact. Strengt h 5/5 in all 4 extremities. No nystagmus. Psych: calm, cooperative, AAO x 3 IMAGING: CTA chest (09/14/20): IMPRESSION: No evidence for pulmonary embolus. Areas of scattered right middle lobe, lingular and lower lobe atelectasis increased from prior examination. DVT prophylaxis ordered?: Lovenox ASSESSMENT AND PLAN: 35-year-old male with history of bronchitis that was r ecently diagnosed, did not complete therapy. States that his son hit his antibiotics. Continues to complain of waxing and waning dry cough and dyspnea. Presented with hypoxemia secondary to right lower lobe pneumonia. Acute respiratory failure with hypoxia secondary to bronchitis vs. RLL PNA w/ outpatient medication non-compliance: -patient has no leukocytosis, no fever -cough is improved. -CTA chest showing no PE on 09/11/20. Likely pna in R lung base. -Continue the patient on steroids and nebulizers. -has received 4 days levaquin, continue additional 3 days and discharge -continue with prednisone taper on DC -Encourage incentive spirometer -check sputum culture, strep pneumo ag, legionella ag. - patient continues to be hypoxic and tachycardic. D/w Dr. Clarke. Recommended repeat CTA PE. Negative for PE. Shows atelectasis of R middle lobe, lingular and lower lobe -encourage ambulation, chest PT. -Continue oxygen and titrate to keep sats greater than 92%. Transaminitis, etiology unclear. - Liver US showed no acute findings -Check hepatitis panel, pending results to be followed up outpatient -AST/ALT 69/230 and has remained stable -Discussed with Dr. Horner, no further workup needed, refer for acute GI for workup of [place]. Thrombocytopenia - resolved on repeat CBC on 09/15/20 - noted to have PLT count 122 from baseline of 160 - repeat shows PLT count of 142 - appears to be within range of baseline - no signs of bleeding L chest wall pain - trop neg x 2, ekg no acute changes - CXR no consolitation or effusion - symmetrical BPs on both limbs - suspect chostochondritis DVT ppx: Lovenox Dispo: pending clinical improvement. VS, I&O, 24H, Fishbone Vital Signs/I&O Vital Signs Date Time Temp Pulse Resp B/P (MAP) Pulse Ox O2 Delivery O2 Flow Rate FiO2 09/16/20 06:00 98.1 65 18 126/82 (97) 96 Room Air 09/15/20 18:00 1.0 I&O- Last 24 Hours up to 6 AM 09/16/20 06:00 Intake Total 1990 ml Output Total 625 ml Balance 1365 ml Laboratory Data 24H LABS Laboratory Tests 2 09/15/20 20:22: Urine Color YELLOW, Urine Appearance CLEAR, Urine pH 6.0, Urine Specific [place] 1.019, Urine Protein NEGATIVE, Urine Glucose (UA) NEGATIVE, Urine Ketones NEGATIVE, Urine Blood NEGATIVE, Urine Nitrite NEGATIVE, Urine Bilirubin NE GATIVE, Urine Urobilinogen 0.2, Urine Leukocyte Esterase NEGATIVE, Urine WBC (Auto) 1, Urine RBC (Auto) 0, Urine Hyaline Casts (Auto) 0, Urine Bacteria (Auto) NEGATIVE, Urine Squamous Epithelial Cells 0, Urine Mucus (Auto) SMALL, Urine Sperm (Auto) 09/16/20 09:00: Immature Granulocyte % (Auto) 1.0, Neutrophils (%) (Auto) 58.6, Lymphocytes (%) (Auto) 33.2, Monocytes (%) (Auto) 6.7, Eosinophils (%) (Auto) 0.3, Basophils (%) (Auto) 0.2, Neutrophils # (Auto) 5.4, Lymphocytes # (Auto) 3.1, Monocytes # (Auto) 0.6, Eosinophils # (Auto) 0.0, Basophils # (Auto) 0.0, Nucleated Red B lood Cells % (auto) 0.0, Anion Gap 6L, Glomerular Filtration Rate > 60.0, Calcium Level 9.3, Total Bilirubin 0.5, Aspartate Amino Transf (AST/SGOT) 90H, Alanine Aminotransferase (ALT/SGPT) 315H, Alkaline Phosphatase 86, Total Protein 6.9, Albumin 3.3, Albumin/Globulin Ratio 0.9 CBC/BMP Laboratory Tests 09/16/20 09:00 Microbiology Microbiology 09/13/20 Gram Stain - Final, Complete 09/13/20 Sputum Culture - Final, Complete 09/11/20 Blood Culture - Preliminary, Resulted No Growth after 72 hours. All specime... KANIKA BERMUDEZ MD Sep 16, 2020 11:55
[2020-09-17 14:09] LABS: BODY FLUID CULTURE Not indicated. (.); LEGIONELLA ANTIGEN URINE Negative (Negative); ORGANISM ID Not indicated. (.); SPECIMEN SOURCE Urine (.); URINE STREP PNEUMONIAE ANTIGEN Negative (Negative)
--- NOTE | 2020-09-18 10:34 | NOCOX ---
NOCTURNAL OXIMETRY DATE: 09/15/2020 ORDERED BY: Luis Mcgowan MD This study was performed on room air. Mean oxygen saturation for this study 97.6%. In general, oxygen saturation remains well above 90%. No significant variability and no significant oxygen desaturations. IMPRESSION: Acceptable oxygen saturation tracing on room air.
== END 2020-09-16 11:47 | disposition home or self-care (01) ==
LOC: M ED 20:35 → M ED INP 20:36 → ENRESERV 09-12 02:21 → M MSPAV 09-12 02:55
PROVIDERS: ADMIT General Practice; ATTEND Family Medicine
DX: J96.91 Respiratory failure, unspecified with hypoxia (principal); J18.9 Pneumonia, unspecified organism; R06.2 Wheezing; F32.9 Major depressive disorder, single episode, unspecified; D69.6 Thrombocytopenia, unspecified; Z79.52 Long term (current) use of systemic steroids; Z79.899 Other long term (current) drug therapy
CPT/HCPCS: 36415; 71045; 71046; 71275; 76705; 80048; 80053; 80076; 81001; 82150; 83605; 83690; 83735; 84145; 84439; 84443; 85025; 85027; 85049; 85652; 86140; 86705; 86709; 86803; 87040; 87070; 87205; 87340; 87449; 87631; 87641; 87899; 93005; 93041; 93970; 94640; 94760; 96365; 96366; 96372; 96375; 96376; 99285; J1650; J1956; J2270; J2930; J7512; Q9967; U0002